=== PATIENT | female | born 1960 | race Caucasian/White ===

== ENCOUNTER 2019-07-19 19:10 | Inpatient (IN) | payer MEDICAID ==
[~2019-07-19] VITALS: Ht 160 cm; Wt 61.8 kg
--- NOTE | 2019-07-19 19:14 | NUR ---
PT RESTRAINED FROM EMS COT TO ER BED. PT YELLING AND COMBATIVE AT THIS TIME. PT YELLING OVER AND OVER "DOLLY'S IN CARE HOME" DOLLY'S BEEN MURDERED" " I KNOW MY RIGHTS" MD AT BEDSIDE.
--- NOTE | 2019-07-19 19:25 | NUR ---
PT AWAKE ALERT AND ORIENTED AT THIS TIME. PT TAKEN TO CT. FAMILY AT BEDSIDE.
--- NOTE | 2019-07-19 19:30 | NUR ---
PT UNRESTRAINED AT THIS TIME.
[2019-07-19 19:46] VITALS: BP 132/60
[2019-07-19 20:00] LABS: UDS - AMPHET NEGATIVE QUAL (NEGATIVE); UDS - BARB NEGATIVE QUAL (NEGATIVE); UDS - BENZO NEGATIVE QUAL (NEGATIVE); UDS - COCAINE NEGATIVE QUAL (NEGATIVE); UDS - OPIATE NEGATIVE QUAL (NEGATIVE); UDS - PCP NEGATIVE QUAL (NEGATIVE); UDS - THC NEGATIVE QUAL (NEGATIVE)
--- NOTE | 2019-07-19 20:00 | NUR ---
PT SIGNIFICANT OTHER GIVEN HER BELONIGINGS, PANTS AND UNDERWARE. PT SHIRT HAD BEEN CUT OFF.
[2019-07-19 20:05] LABS: BILIRUBIN NEGATIVE (NEGATIVE); GLUCOSE NEGATIVE (NEGATIVE); KETONE NEGATIVE (NEGATIVE); NITRITE POSITIVE (NEGATIVE); SPECIFIC GRAVITY 1.015 (1.005-1.020); UROBILINOGEN NORMAL (NORMAL)
[2019-07-19 20:07] LABS: BACTERIA MANY /hpf (NEGATIVE); RED CELLS - URINE 0-5 /hpf (0-5); WHITE CELLS - URINE 0-5 /hpf (NEGATIVE)
[2019-07-19 20:14] LABS: BASOPHILS 0.4 % (0-2); EOSINOPHILS 1.8 % (0-7); HEMATOCRIT 41.7 % (36.0-48.0); HEMOGLOBIN 13.9 g/dL (12-16); IMMATURE GRANULOCYTES 0.1 % (0-5); LYMPHOCYTES 35.8 % (15-50); MCH 30.5 pg (26.0-34.0); MCHC 33.3 g/dL (31.0-37.0); MCV 91.4 fL (80.0-100.0); MEAN PLATELET VOLUME 9.9 fL (7.4-10.4); MONOCYTES 7.7 % (2-11); NEUTROPHILS 54.2 % (40-80); PLATELET COUNT 242 10x3/uL (130-400); RBC 4.56 10x6/uL (4.00-5.40); RDW 14.8 % (11.5-14.5); WBC 6.7 10x3/uL (4.8-10.8)
[2019-07-19 20:20] LABS: APTT 30.7 SECONDS (22.8-39.4); INR 1.01 (0.85-1.17); PROTIME 13.3 SECONDS (11.6-15.0)
--- NOTE | 2019-07-19 20:33 | NUR ---
DR. POTTER NOTIFIED AND REVIEWED PT'S BEHAVIOR AND ASSESSMENT RESULTS. PT IS A LOW RISK PER DR. POTTER. DR. POTTER STATED TO GIVE RESOURCES TO PT AT TIME OF DISCHARGE. NO FURTHER ORDERS AT THIS TIME. RESOURCES REVIEWED PT AND SHE VERBALIZED UNDERSTANDING.
[2019-07-19 20:40] LABS: CALC OSMOLALITY 283 mosm/kg (275-300); CALCIUM 9.4 mg/dL (8.5-10.1); CARBON DIOXIDE 23.9 mmol/L (21.0-32.0); CHLORIDE - SERUM 105 mmol/L (98-107); CREATININE - SERUM 1.2 mg/dL (0.6-1.3); GLUCOSE 98 mg/dL (74-106); POTASSIUM - SERUM 3.3 mmol/L (3.5-5.1); SODIUM 143 mmol/L (136-145); UREA NITROGEN 10 mg/dL (7-18); eGFR NON AFRICAN AMERICAN 48 mL/min (90-120)
[2019-07-19 20:51] LABS: ALBUMIN 3.4 g/dL (3.4-5.0); ALKALINE PHOSPHATASE 108 U/L (30-120); ALT (SGPT) 18 U/L (10-68); BILIRUBIN - TOTAL 0.56 mg/dL (0.2-1.3); CKMB 0.4 U/L (0.0-3.6); CREATINE KINASE 53 UL (21-215); MAGNESIUM - SERUM 1.8 mg/dL (1.8-2.4); PROTEIN - SERUM 7.5 g/dL (6.4-8.2); THYROID STIMULATING HORMONE 3.12 uIU/mL (0.36-3.74)
[2019-07-19 21:11] LABS: TROPONIN-I < 0.017 ng/mL (0.000-0.060)
[2019-07-19] MEDS ORDERED: MECLIZINE HCL25 MG PO (23:46)
[2019-07-20 00:10] VITALS: BP 112/63; BMI 24.1
--- NOTE | 2019-07-20 00:46 | NUR ---
RECEIVED REPORT FROM KATARINA RN IN ER. ARRIVED TO FLOOR ON STRETCHER ACCOMPANIED BT STAFF AND FAMILY MEMBERS. VERY LETHARGIC AND UNABLE TO ANSWER QUESTIONS. AROUSES AT TIMES AND ATTEMPTS TO ANSWER THAN GOES BACK TO SLEEP. HISTORY GIEN BY SIGNIFICANT OTHER AND SON. IV TO RT AC WITH NS INFUSING AT 125 HR. NOT WEARING O2 AT THIS TIME. O2 SAT 98% ON RA. WILL CONT TO OBSERVE.
[2019-07-20 00:48] VITALS: BP 112/65
[2019-07-20 05:22] VITALS: BP 120/65
[2019-07-20 06:56] LABS: BASOPHILS 0.5 % (0-2); EOSINOPHILS 3.7 % (0-7); HEMATOCRIT 36.8 % (36.0-48.0); HEMOGLOBIN 11.9 g/dL (12-16); IMMATURE GRANULOCYTES 0.2 % (0-5); LYMPHOCYTES 40.4 % (15-50); MCH 29.9 pg (26.0-34.0); MCHC 32.3 g/dL (31.0-37.0); MCV 92.5 fL (80.0-100.0); MEAN PLATELET VOLUME 9.7 fL (7.4-10.4); MONOCYTES 9.6 % (2-11); NEUTROPHILS 45.6 % (40-80); PLATELET COUNT 241 10x3/uL (130-400); RBC 3.98 10x6/uL (4.00-5.40); WBC 6.6 10x3/uL (4.8-10.8)
[2019-07-20 07:14] LABS: ALBUMIN 2.7 g/dL (3.4-5.0); ALKALINE PHOSPHATASE 88 U/L (30-120); CALC OSMOLALITY 281 mosm/kg (275-300); CALCIUM 8.1 mg/dL (8.5-10.1); CARBON DIOXIDE 24.4 mmol/L (21.0-32.0); CHLORIDE - SERUM 109 mmol/L (98-107); CKMB 0.4 U/L (0.0-3.6); CREATINE KINASE 55 UL (21-215); CREATININE - SERUM 0.9 mg/dL (0.6-1.3); GLUCOSE 82 mg/dL (74-106); MAGNESIUM - SERUM 1.7 mg/dL (1.8-2.4); PHOSPHOROUS 2.7 mg/dL (2.5-4.9); POTASSIUM - SERUM 3.5 mmol/L (3.5-5.1); PROTEIN - SERUM 6.1 g/dL (6.4-8.2); SODIUM 143 mmol/L (136-145); TROPONIN-I < 0.017 ng/mL (0.000-0.060); UREA NITROGEN 8 mg/dL (7-18); eGFR NON AFRICAN AMERICAN 68 mL/min (90-120)
[2019-07-20 07:18] LABS: ALT (SGPT) 13 U/L (10-68)
[2019-07-20 12:00] VITALS: BP 113/54
--- NOTE | 2019-07-20 13:00 | NUR ---
RT AC IV INFILTRATED. D/C IV WITH CATH TIP INTACT. NEW 22G IV STARED TO RT WRIST X1 STICK BY GINNER TRACER CLERK.
[2019-07-20 14:36] VITALS: Ht 160 cm; Wt 61.8 kg
--- NOTE | 2019-07-20 15:33 | NUR ---
PT RESTING COMFORTABLY IN BED, DENIES ANY NEEDS AT THIS TIME. FAMILY AT BEDSIDE, NAD NOTED,W ILL CONTINUE TO MONITOR.
[2019-07-20 16:00] VITALS: BP 135/71
--- NOTE | 2019-07-20 19:45 | NUR ---
PT LYING IN BED AWAKE AND ORIENTED. NO SIGNS OR SYMPTOMS OF DISTRESS NOTED. RESPIRATIONS EVEN AND UNLBAORED. TURKEY SANDWHICH PROVIDED PER PT REQUEST. PT ENCOURAGED TO CALL FOR HELP WHEN GETTING IN AND OUT OF BED. CALL LIGHT WITH IN REACH AND BED IS INLOWEST POSITION. WILL CONTINUE TO MONITOR.
[2019-07-20 22:02] VITALS: BP 120/58
[2019-07-21 01:14] VITALS: BP 102/53
--- NOTE | 2019-07-21 01:42 | NUR ---
I have reviewed this patient and I concur with the Shift Assessment completed by the Licensed Practical Nurse today this shift.
--- NOTE | 2019-07-21 03:02 | NUR ---
PT RESTING IN BED QUIETLY. EASILY AWAKEN WITH VOICE STIMULATION. NO SIGNS OR SYMPTOMS OF DISTRESS NOTED. RESPIRATIONS EVEN AND UNLABORED. PT ENCOURAGED TO CALL FOR HELP WHEN GETTING IN AND OUT OF BED. PT VERBILIZES UNDERSTANDING. CALL LIGHT WITH IN REACH AND BED IS IN ITS LOWEST POSITON. WILL CONTINUE TO MONITOR
[2019-07-21 04:40] LABS: BASOPHILS 0.4 % (0-2); EOSINOPHILS 3.5 % (0-7); HEMOGLOBIN 11.8 g/dL (12-16); IMMATURE GRANULOCYTES 0.4 % (0-5); MCH 30.3 pg (26.0-34.0); MCHC 32.8 g/dL (31.0-37.0); MCV 92.5 fL (80.0-100.0); MEAN PLATELET VOLUME 10.8 fL (7.4-10.4); MONOCYTES 8.4 % (2-11); NEUTROPHILS 38.3 % (40-80); PLATELET COUNT 199 10x3/uL (130-400); RBC 3.89 10x6/uL (4.00-5.40); RDW 15.1 % (11.5-14.5); WBC 6.9 10x3/uL (4.8-10.8)
[2019-07-21 04:55] LABS: CALCIUM 7.8 mg/dL (8.5-10.1)
[2019-07-21 04:57] LABS: PHOSPHOROUS 3.5 mg/dL (2.5-4.9)
[2019-07-21 06:51] VITALS: BP 98/69
--- NOTE | 2019-07-21 08:37 | NUR ---
AM MEDS GIVEN AT THIS TIME. PT IN BED, EATING BREAKFAST. A/O X4, RESP EVEN AND NONLABORED ON RA. LT WRIST IV INFUSING NS AT 75CC/HR. PT DENIES ANY NEEDS AT THIS TIME. CALL LIGHT IN REACH, BEDSIDE RAILS X2, NAD NOTED,W ILL CONTINUE TO MONITOR.
[2019-07-21] MEDS ORDERED: LEVOFLOXACIN500 MG PO (11:11)
[2019-07-21 11:25] VITALS: BP 112/75
--- NOTE | 2019-07-21 12:56 | NUR ---
PROVIDED VERBAL AND WRITTEN DISCHARGE TEACHING TO PT, WHO VERBALIZED UNDERSTANDING REGARING TEACHING. D/C LT WRIST IV WITH CATHETER TIP INTACT. PT WILL NOTIFY NURSE OR COMMERCIAL FOOD INSTRUCTOR WHEN READY FOR WHEELCHAIR.
--- NOTE | 2019-07-21 13:54 | NUR ---
PT LEFT UNIT VIA WHEELCHAIR, WITH ALL BELONGINGS, ACCOMPANIED BY FAMILY, NAD NOTED.
--- NOTE | 2019-07-21 17:57 | MORECARE ---
CASE MANAGEMENT DISCHARGE SUMMARY PATIENT: TIFFANY SANTOS UNIT: [id number] ADM DATE: 07/20/19 AGE: 59 : 58 SEX: F ROOM/BED: D.8192 AUTHOR: OLGA CARR PHYSICIAN: REFERRING PHYSICIAN: MARCELL ALONSO MD DATE OF SERVICE: 07/21/19 Discharge Plan Patient Name: TIFFANY SANTOS Facility: [facility]:[place] : 1960 Planned Disposition: Home Anticipated Discharge Date: 07/21/19 Discharge Date: 07/21/2019 Expected LOS: 1 Initial Reviewer: [email or web address] Initial Review Date: 07/21/2019 Generated: 07/21/19 6:57 pm DCPIA - Discharge Planning Initial Assessment Updated by [email or web address]: Gilberto Estrada on 07/21/19 5:56 pm * Is the patient Alert and Oriented? Yes * How many steps to enter\exit or inside your home? NONE * PCP DR. MENA * Pharmacy [facility] ON [place] * Preadmission Environment Home with Family * ADLs Independent * Equipment None * Other Equipment NO MEDICAL EQUIPMENT PROVIDER * List name and contact numbers for known caregivers / representatives who currently or will assist patient after discharge: DOLLY GAYLE, FRIEND, * Verbal permission to speak to the caregivers and representatives has been obtained from the patient. N/A * Community resources currently utilized None * Please name any agencies selected above. NONE * Additional services required to return to the preadmission environment? No * Can the patient safely return to the preadmission environment? Yes * Has this patient been hospitalized within the prior 30 days at any hospital? No Patient Name: TIFFANY SANTOS Page [phone] at 1757 All edits/amendments must be made on the electronic document DICTATION DATE: 07/21/191756 AGRICULTURAL SCIENCE PROFESSOR: AGUSTIN 07/21/191756 RPT#: [id number] DC DATE:07/21/19 STATUS: DIS IN [facility] [address] [place] [address] END OF REPORT
--- NOTE | 2019-07-21 18:07 | MORECARE ---
CASE MANAGEMENT DISCHARGE SUMMARY PATIENT: TIFFANY SANTOS UNIT: [id number] ADM DATE: 07/20/19 AGE: 59 : 58 SEX: F ROOM/BED: D.0046 AUTHOR: BRUNO,DOC PHYSICIAN: REFERRING PHYSICIAN: MARCELL ALONSO MD DATE OF SERVICE: 07/21/19 Discharge Plan Patient Name: TIFFANY SANTOS Facility: [facility]:[place] : 1960 Planned Disposition: Home Anticipated Discharge Date: 07/21/19 Discharge Date: 07/21/2019 Expected LOS: 1 Initial Reviewer: [email or web address] Initial Review Date: 07/21/2019 Generated: 07/21/19 7:07 pm Comments DCP- Discharge Planning Updated by [email or web address]: Gilberto Estrada on 07/21/19 4:[address] Patient Name: TIFFANY SANTOS Admission Status: ER Accout number: [id number] Admission Date: 07-20-2019 : 1960 Admission Diagnosis: Attending: MARCELL ALONSO Current LOS: 1 Anticipated DC Date: 07-21-2019 Planned Disposition: Home Primary Insurance: MEDICAID [place] PENDING Discharge Planning Comments: CM MET WITH PT IN ROOM TO DISCUSS DISCHARGE PLANNING AND NEEDS. PT REPORTS LIVING AT HOME INDEPENDENTLY WITH "AN ADULT" . PT HAS NO MEDICAL EQUIPMENT AND NO OUTSIDE SERVICES ASSISTING IN THE HOME. CM DISCUSSED AVAILABILITY OF HOME HEALTH, REHAB SERVICES AND MEDICAL EQUIPMENT. PT DENIES DISCHARGE NEEDS, REPORTS HER FRIEND WILL PICK HER UP FOR DISCHARGE HOME. CM WAS LEAVING ROOM, PT COMMENTED THAT SHE KNEW CM FROM WHEN CM WORKED AT [employer]. CM COMMENTED THAT THAT WAS A LONG TIME AGO AND CM WAS GLAD TO PT WAS DOING WELL AND TO LET CM KNOW IF SHE NEEDS ANYTHING FOR DISCHARGE HOME. TRADITIONAL CHINESE HERBALIST NURSE NOTIFIED. Patient Financial Counselor: Gilberto Estrada DCPIA - Discharge Planning Initial Assessment Updated by [email or web address]: Gilberto Estrada on 07/21/19 5:56 pm * Is the patient Alert and Oriented? Yes * How many steps to enter\\exit or inside your home? NONE * PCP DR. MENA * Pharmacy [facility] ON [place] * Preadmission Environment Home with Family * ADLs Independent * Equipment None * Other Equipment NO MEDICAL EQUIPMENT PROVIDER * List name and contact numbers for known caregivers / representatives who currently or will assist patient after discharge: DOLLY GAYLE, FRIEND, * Verbal permission to speak to the caregivers and representatives has been obtained from the patient. N/A * Community resources currently utilized None * Please name any agencies selected above. NONE * Additional services required to return to the preadmission environment? No * Can the patient safely return to the preadmission environment? Yes * Has this patient been hospitalized within the prior 30 days at any hospital? No Last DP export: 07/21/19 4:57 p Patient Name: TIFFANY SANTOS Page [phone] at 1807 All edits/amendments must be made on the electronic document DICTATION DATE: 07/21/191806 MARKETING FORECASTER: AGUSTIN 07/21/191806 RPT#: [id number] DC DATE:07/21/19 STATUS: DIS IN [facility] [address] [place] [address] END OF REPORT
== END 2019-07-21 13:55 | disposition home or self-care (01) | DRG 689 ==
LOC: D.ER 19:10 → D.M2 21:29 → OBSVTIME 21:29 → D.M2 07-20 10:54
PROVIDERS: Family Medicine; ADMIT Internal Medicine Nephrology; ATTEND Internal Medicine Nephrology
DX: N39.0 Urinary tract infection, site not specified (principal); G93.41 Metabolic encephalopathy; F17.213 Nicotine dependence, cigarettes, with withdrawal; N12 Tubulo-interstitial nephritis, not specified as acute or chronic; E87.6 Hypokalemia; E83.42 Hypomagnesemia; I10 Essential (primary) hypertension; E78.5 Hyperlipidemia, unspecified; B96.20 Unspecified Escherichia coli [E. coli] as the cause of diseases classified elsewhere

== ENCOUNTER 2019-07-26 11:28 | Emergency (ER) | payer MEDICAID ==
[~2019-07-26] VITALS: Ht 160 cm; Wt 59.1 kg
[~2019-07-26 11:28] MED LIST: LEVOFLOXACIN500 MG PO; MECLIZINE HCL25 MG PO
[2019-07-26 11:31] VITALS: Ht 160 cm; Wt 59.1 kg
[2019-07-26 12:17] LABS: BASOPHILS 0.4 % (0-2); EOSINOPHILS 1.3 % (0-7); HEMATOCRIT 44.9 % (36.0-48.0); HEMOGLOBIN 14.9 g/dL (12-16); IMMATURE GRANULOCYTES 0.4 % (0-5); LYMPHOCYTES 27.4 % (15-50); MCH 30.8 pg (26.0-34.0); MCHC 33.2 g/dL (31.0-37.0); MCV 92.8 fL (80.0-100.0); MEAN PLATELET VOLUME 10.5 fL (7.4-10.4); MONOCYTES 5.5 % (2-11); PLATELET COUNT 211 10x3/uL (130-400); RBC 4.84 10x6/uL (4.00-5.40); RDW 14.4 % (11.5-14.5); WBC 7.2 10x3/uL (4.8-10.8)
[2019-07-26 12:24] LABS: CALC OSMOLALITY 273 mosm/kg (275-300); CALCIUM 9.3 mg/dL (8.5-10.1); CARBON DIOXIDE 28.9 mmol/L (21.0-32.0); CHLORIDE - SERUM 98 mmol/L (98-107); CREATININE - SERUM 1.2 mg/dL (0.6-1.3); GLUCOSE 120 mg/dL (74-106); POTASSIUM - SERUM 3.4 mmol/L (3.5-5.1); SODIUM 137 mmol/L (136-145); UREA NITROGEN 11 mg/dL (7-18); eGFR NON AFRICAN AMERICAN 48 mL/min (90-120)
[2019-07-26 12:26] LABS: APTT 30.4 SECONDS (22.8-39.4); INR 1.02 (0.85-1.17); PROTIME 13.3 SECONDS (11.6-15.0)
[2019-07-26 12:41] LABS: ALBUMIN 3.9 g/dL (3.4-5.0); ALKALINE PHOSPHATASE 112 U/L (30-120); ALT (SGPT) 20 U/L (10-68); AMYLASE - SERUM 35 U/L (25-115); BILIRUBIN - TOTAL 0.52 mg/dL (0.2-1.3); CKMB 0.5 U/L (0.0-3.6); CREATINE KINASE 41 UL (21-215); LIPASE 102 U/L (73-393); MAGNESIUM - SERUM 1.8 mg/dL (1.8-2.4); PROTEIN - SERUM 8.1 g/dL (6.4-8.2); THYROID STIMULATING HORMONE 5.91 uIU/mL (0.36-3.74); TROPONIN-I < 0.017 ng/mL (0.000-0.060)
[2019-07-26 12:45] VITALS: BP 190/71
[2019-07-26 12:54] LABS: UDS - AMPHET NEGATIVE QUAL (NEGATIVE); UDS - BARB NEGATIVE QUAL (NEGATIVE); UDS - BENZO NEGATIVE QUAL (NEGATIVE); UDS - COCAINE NEGATIVE QUAL (NEGATIVE); UDS - OPIATE NEGATIVE QUAL (NEGATIVE); UDS - PCP NEGATIVE QUAL (NEGATIVE); UDS - THC NEGATIVE QUAL (NEGATIVE)
[2019-07-26 13:02] LABS: AMORPHOUS SEDIMENT <1+ /lpf (NONE SEEN); BACTERIA FEW /hpf (NEGATIVE); BILIRUBIN NEGATIVE (NEGATIVE); EPITHELIAL CELLS 0-5 /hpf (0-5); GLUCOSE NEGATIVE (NEGATIVE); KETONE SMALL mg/dL (NEGATIVE); NITRITE NEGATIVE (NEGATIVE); RED CELLS - URINE 0-5 /hpf (0-5); UROBILINOGEN NORMAL (NORMAL); WHITE CELLS - URINE NSEEN /hpf (NEGATIVE)
[2019-07-26] MEDS ORDERED: TRIAMTERENE-HC1 EAC3 PO (13:48)
[2019-07-26] MEDS ORDERED: SYNTHROID50 MCG PO (13:48)
[2019-07-26] MEDS ORDERED: KEFLEX500 MG PO (19:34)
== END 2019-07-26 14:07 | disposition home or self-care (01) ==
LOC: D.ER 11:28
PROVIDERS: Family Medicine
DX: R41.82 Altered mental status, unspecified (principal); R41.0 Disorientation, unspecified; I10 Essential (primary) hypertension; Z72.0 Tobacco use

== ENCOUNTER 2019-07-26 19:14 | Emergency (ER) | payer MEDICAID ==
[~2019-07-26] VITALS: Ht 160 cm; Wt 59.1 kg
[~2019-07-26 19:14] MED LIST changes: +SYNTHROID50 MCG PO; +TRIAMTERENE-HC1 EAC3 PO
[2019-07-26 19:16] VITALS: Ht 160 cm; Wt 59.1 kg
[2019-07-26] MEDS ORDERED: KEFLEX500 MG PO (19:34)
[2019-07-26 20:18] VITALS: BP 147/75
== END 2019-07-26 20:18 | disposition home or self-care (01) ==
LOC: D.ER 19:14
DX: H60.11 Cellulitis of right external ear (principal); I10 Essential (primary) hypertension; Z72.0 Tobacco use

== ENCOUNTER 2019-08-04 06:57 | Emergency (ER) | payer MEDICAID ==
[~2019-08-04] VITALS: Ht 160 cm; Wt 54.5 kg
[~2019-08-04 06:57] MED LIST changes: +KEFLEX500 MG PO
[2019-08-04 06:59] VITALS: BP 138/78; Ht 160 cm; Wt 54.5 kg
== END 2019-08-04 07:46 | disposition home or self-care (01) ==
LOC: D.ER 06:57
DX: N89.8 Other specified noninflammatory disorders of vagina (principal); I10 Essential (primary) hypertension; Z72.0 Tobacco use; Z13.89 Encounter for screening for other disorder

== ENCOUNTER 2019-08-16 13:52 | Emergency (ER) | payer MEDICAID ==
[~2019-08-16] VITALS: Ht 160 cm; Wt 54.5 kg
[2019-08-16 14:20] VITALS: Ht 160 cm; Wt 54.5 kg
--- NOTE | 2019-08-16 14:54 | NUR ---
PT IS HYPERVERBAL WITH FLIGHT OF IDEAS. PT STATED HER DAUGHTER HAS PSYCH PROBLEMS, BUT SHE DOES NOT. PT STATED SHE WOULD KILL HERSELF IF WE DIDN'T GIVE HER HER MEDICINES. I ATTEMPTED TO GET MORE INFORMATION. PT STATED THAT HER MEDICINES WERE BROKE AND SHE NEEDED TESTED. I ASKED WHAT SHE NEEDED TESTED FOR AND SHE SAID HER "HAIR RASHARD WAS BROKE". PT STATED THAT "DOLLY HAD HER MEDICINES AND IF WE WOULD LET HIM IN, HE WOULD GET TESTED BECAUSE HE NEEDED TO BE TESTED". PT WAS EASILY AGITATED WHEN I ATTEMPTED TO REDIRECT HER. I AGAIN ASKED WHAT DID SHE NEED TO GET TESTED FOR AND SHE STATED, "EVERYTHING". I AM UNABLE TO COMPLETE ASSESSMENT DUE TO PT'S PARANOIA AND FLIGHT OF IDEAS. REPORTED OFF TO THE ATTENDING AND CHARGE NURSE. PT IS IN A SECURE ROOM AND IN PAPERSCRUBS. ALL BELONGINGS REMOVED FROM HER ROOM. NO SITTER NEEDED AT THIS TIME DUE TO ASSESSMENT SHOWING LOW RISK. ATTEMPTED TO GIVE RESOURCES BUT PT REFUSED.
[2019-08-16 15:17] LABS: BILIRUBIN NEGATIVE (NEGATIVE); GLUCOSE NEGATIVE (NEGATIVE); KETONE NEGATIVE (NEGATIVE); NITRITE NEGATIVE (NEGATIVE); SPECIFIC GRAVITY 1.025 (1.005-1.020); UROBILINOGEN NORMAL (NORMAL)
[2019-08-16 15:18] LABS: BASOPHILS 0.3 % (0-2); EOSINOPHILS 1.6 % (0-7); HEMATOCRIT 42.5 % (36.0-48.0); IMMATURE GRANULOCYTES 0.4 % (0-5); LYMPHOCYTES 27.1 % (15-50); MCH 30.6 pg (26.0-34.0); MCHC 32.9 g/dL (31.0-37.0); MEAN PLATELET VOLUME 9.7 fL (7.4-10.4); MONOCYTES 7.3 % (2-11); NEUTROPHILS 63.3 % (40-80); PLATELET COUNT 226 10x3/uL (130-400); RBC 4.57 10x6/uL (4.00-5.40); RDW 14.5 % (11.5-14.5); WBC 7.9 10x3/uL (4.8-10.8)
[2019-08-16 15:20] LABS: BACTERIA MODERATE /hpf (NEGATIVE); RED CELLS - URINE OCC /hpf (0-5); WHITE CELLS - URINE 0-5 /hpf (NEGATIVE)
[2019-08-16 15:27] LABS: CALCIUM 9.3 mg/dL (8.5-10.1); CARBON DIOXIDE 28.1 mmol/L (21.0-32.0); CREATININE - SERUM 2.2 mg/dL (0.6-1.3); POTASSIUM - SERUM 3.1 mmol/L (3.5-5.1)
[2019-08-16 15:33] LABS: ACETAMINOPHEN 1.8 ug/mL (10.0-30.0); ALBUMIN 3.8 g/dL (3.4-5.0); BILIRUBIN - TOTAL 0.4 mg/dL (0.2-1.3); PROTEIN - SERUM 7.6 g/dL (6.4-8.2)
[2019-08-16 15:33] LABS: UDS - AMPHET NEGATIVE QUAL (NEGATIVE); UDS - BARB NEGATIVE QUAL (NEGATIVE); UDS - BENZO NEGATIVE QUAL (NEGATIVE); UDS - COCAINE NEGATIVE QUAL (NEGATIVE); UDS - OPIATE POSITIVE QUAL (NEGATIVE); UDS - PCP NEGATIVE QUAL (NEGATIVE); UDS - THC NEGATIVE QUAL (NEGATIVE)
[2019-08-16 23:09] LABS: ANION GAP 10.3 mmol/L (8-16); CALCIUM 8.9 mg/dL (8.5-10.1); CARBON DIOXIDE 28.1 mmol/L (21.0-32.0); CREATININE - SERUM 1.6 mg/dL (0.6-1.3); POTASSIUM - SERUM 3.4 mmol/L (3.5-5.1)
[2019-08-16 23:15] LABS: ALBUMIN 3.2 g/dL (3.4-5.0); BILIRUBIN - TOTAL 0.39 mg/dL (0.2-1.3); PROTEIN - SERUM 6.6 g/dL (6.4-8.2)
[2019-08-17 04:50] VITALS: BP 128/78
== END 2019-08-17 04:51 ==
LOC: D.ER 13:52
PROVIDERS: Emergency Medicine; Family Medicine
DX: F30.9 Manic episode, unspecified (principal); R44.0 Auditory hallucinations; E86.0 Dehydration; E87.6 Hypokalemia; N39.0 Urinary tract infection, site not specified; R44.1 Visual hallucinations; I10 Essential (primary) hypertension